=== PATIENT | male | born 2000 | race Caucasian/White ===

== ENCOUNTER 2021-08-13 12:24 | Emergency (ER) | payer OTHER ==
[2021-08-13 12:38] VITALS: BP 147/95; PULSE 82; RESP 20; TEMP 99.4
--- NOTE | 2021-08-13 13:40 | ED ---
URI HPI - General Chief Complaint: Upper Respiratory Infection Stated Complaint: covid test Time Seen by Provider: 08/13/21 13:05 Source: patient Mode of arrival: ambulatory Limitations: no limitations - History of Present Illness Initial Comments: Pleasant 20-year-old male presents complaining of symptoms consistent COVID-19 for the past 3 or 4 days. Patient has had a cough, body aches, low-grade fever, mild headache, loss of taste and smell. Patient exposed to a family member with similar symptomology. Patient states she is actually feeling better at this point. Denies chest pain or recurrence of breath. No abdominal pain. No changes in, when she urination. No nausea or vomiting. No skin rashes or lesions. - Related Data Home Medications Medication Instructions Recorded Confirmed No Known Home Medications 04/19/14 04/19/14 Allergies Allergy/AdvReac Type Severity Reaction Status Date / Time No Known Allergies Allergy Verified 08/13/21 12:34 Review of Systems ROS Statement: Those systems with pertinent positive or pertinent negative responses have been documented in the HPI. ROS Other: All systems not noted in ROS Statement are negative. Past Medical History Past Medical History: Asthma History of Any Multi-Drug Resistant Organisms: None Reported Past Surgical History: Hernia Repair Past Psychological History: Anxiety, Depression Smoking Status: Former smoker Past Alcohol Use History: None Reported Past Drug Use History: None Reported General Exam - General Exam Comments Initial Comments: Patient in no distress Limitations: no limitations General appearance: alert, in no apparent distress Head exam: Present: atraumatic, normocephalic, normal inspection Eye exam: Present: normal appearance, PERRL, EOMI. Absent: scleral icterus, conjunctival injection, periorbital swelling ENT exam: Present: normal exam, mucous membranes moist Neck exam: Present: normal inspection. Absent: tenderness, meningismus, lymphadenopathy Respiratory exam: Present: normal lung sounds bilaterally. Absent: respiratory distress, wheezes, rales, rhonchi, stridor Cardiovascular Exam: Present: regular rate, normal rhythm, normal heart sounds. Absent: systolic murmur, diastolic murmur, rubs, gallop, clicks GI/Abdominal exam: Present: soft, normal bowel sounds. Absent: distended, tenderness, guarding, rebound, rigid Extremities exam: Present: normal inspection, full ROM, normal capillary refill. Absent: tenderness, pedal edema, joint swelling, calf tenderness Back exam: Present: normal inspection Neurological exam: Present: alert, oriented X3, CN II-XII intact Psychiatric exam: Present: normal affect, normal mood Skin exam: Present: warm, dry, intact, normal color. Absent: rash Course Vital Signs 08/13/21 12:35 Temperature 99.4 F Pulse Rate 82 Respiratory 20 Rate Blood Pressure 147/95 O2 Sat by Pulse 98 Oximetry Medical Decision Making - Medical Decision Making Patient presents with symptoms consistent with COVID-19. Patient educated on quarantine measures. Patient was told to return to the ER for any signs or symptoms worsen. Told to return immediately if any other problems arise. All questions answered. Treatment plan discussed. Patient in agreement - Lab Data Lab Results 08/13/21 Range/Units 12:47 Coronavirus (PCR) Detected A (Not Detectd) Disposition Clinical Impression: COVID-19 Disposition: HOME SELF-CARE Condition: Good Instructions (If sedation given, give patient instructions): Coronavirus Dise ase 2019 (COVID-19) Additional Instructions: SELF QUARANTINE DISCHARGE: As you are at risk for symptoms due to coronavirus, please stay home and stay away from others as much as possible. Please maintain social distance of 6 feet if possible. You should not return to work until at least 3 days (72 hours) have passed since recovery of symptoms. This defined as resolution of fever without the use of fever reducing medicines and improvement in respiratory symptoms (e.g,, cough, shortness of breath) Isolation can end at least 5 days after symptom onset and after fever ends for 24 hours (without the use of fever-reducing medication) and symptoms are improving, if these people can continue to properly wear a well-fitted mask around others for 5 more days after the 5-day isolation period. If you're still having symptoms at the end of 5 day period, isolate for an additional 5 days. More information about what to do if you are sick can be found on the CDC web site at https://www.cdc.gov/coronavirus/2019-ncov/km-jrg-fwm-sick/tezwy-roli-rwts.html Expect the symptoms to last for 7-14 days from onset. Use acetaminophen (Tylenol) as needed for discomfort. You can take a maximum of 1 gram every 6 hours for discomfort, with your total dose in 24 hours not exceeding 4 grams. Be sure to maintain hydration. Drink continuous water and/or items high in vitamin C, such as orange juice and/or lemonade. Unless you have high blood pressure, you may consider Sudafed (which is [id number]) for nasal congestion. I would suggest that a short acting Ena afed rather than the 24 hour Sudafed. For a cough you may take Mucinex or Robitussin. Also consider the use of Vicks Vapor Rub or your chest when you sleep. Use a humidifier that is cleaned frequently, in the bedroom at night. For Nausea /Vomiting/Diarrhea associated with your Illness: o Small frequent sips of room temperature liquids. o Diet: Lamar Foods - If you are still experiencing discomfort and/or nausea please slowly advancing your diet using the BRAT Diet = bananas, rice, apples/apple sauce, toast. o With diarrhea avoid any dairy for 48 hours after symptoms resolved. o Continue with activity as tolerated. If your symptoms do get worse and you believe that the upper respiratory infection has developed into something else, such as pneumonia or severe deh ydration, please return to the emergency department or follow-up with your primary care. But expect to be symptomatic for the days as indicated above Follow-up with her regular physician for reevaluation if needed. If you need a regular physician, I have provided a primary care doctor on your paperwork for you. Is patient prescribed a controlled substance at d/c from ED?: No Referrals: Eric Catherine [STAFF PHYSICIAN] - 08/20/21 Time of Disposition: 13:35
== END 2021-08-13 13:42 | disposition home or self-care (01) ==
LOC: EC 12:24
DX: U07.1 COVID-19 (principal); J45.909 Unspecified asthma, uncomplicated; F41.9 Anxiety disorder, unspecified; F32.A Depression, unspecified; Z87.891 Personal history of nicotine dependence
CPT/HCPCS: 87635; 99284

== ENCOUNTER 2021-10-22 09:11 | Emergency (ER) | payer OTHER ==
[2021-10-22 09:16] VITALS: BP 157/90; PULSE 108; RESP 20; TEMP 99.7
[2021-10-22] MEDS ORDERED: IBUPROFEN 600 MG TAB PO STA (09:32)
--- NOTE | 2021-10-22 09:33 | ED ---
ENT HPI - General Chief complaint: ENT Stated complaint: ENT Time Seen by Provider: 10/22/21 09:18 Source: patient, RN notes reviewed Mode of arrival: ambulatory Limitations: no limitations - History of Present Illness Initial comments: 20-year-old male presented to the emergency Department with chief complaint of sore throat. Patient states is painful to swallow he is has no difficulty swallowing other painful. Denies any shortness of breath. Patient states that symptoms started overnight he is noted to have a fever today. Denies any history of mono. He denies any abdominal pain. Patient offers no other complaints. - Related Data Previous Rx's Medication Instructions Recorded Azithromycin [Zithromax Z-pack (6 0 mg PO DIRECTED #1 packet 10/22/21 tabs)] Allergies Allergy/AdvReac Type Severity Reaction Status Date / Time No Known Allergies Allergy Verified 10/22/21 09:16 Review of Systems ROS Statement: Those systems with pertinent positive or pertinent negative responses have been documented in the HPI. ROS Other: All systems not noted in ROS Statement are negative. Past Medical History Past Medical History: Asthma History of Any Multi-Drug Resistant Organisms: None Reported Past Surgical History: Hernia Repair Past Psychological History: Anxiety, Depression Smoking Status: Former smoker Past Alcohol Use History: None Reported Past Drug Use History: None Reported General Exam Limitations: no limitations General appearance: alert, in no apparent distress Head exam: Present: atraumatic, normocephalic, normal inspection Eye exam: Present: normal appearance, PERRL, EOMI. Absent: scleral icterus, conjunctival injection, periorbital swelling ENT exam: Present: mucous membranes moist, TM's normal bilaterally, normal external ear exam. Absent: normal oropharynx (Erythematous posterior pharynx, no abscess noted) Neck exam: Present: normal inspection, full ROM, lymphadenopathy. Absent: tenderness, meningismus Respiratory exam: Present: normal lung sounds bilaterally. Absent: respiratory distress, wheezes, rales, rhonchi, stridor Cardiovascular Exam: Present: normal rhythm, tachycardia, normal heart sounds. Absent: systolic murmur, diastolic murmur, rubs, gallop, clicks Course Vital Signs 10/22/21 09:14 Temperature 99.7 F H Pulse Rate 108 H Respiratory 20 Rate Blood Pressure 157/90 O2 Sat by Pulse 97 Oximetry Medical Decision Making - Medical Decision Making Patient noted to have fever, symptoms consistent with strep pharyngitis. Patient was started on antibiotics we did discuss symptomatic control and return parameters. Disposition Clinical Impression: Acute pharyngitis Disposition: HOME SELF-CARE Condition: Stable Instructions (If sedation given, give patient instructions): Strep Throat (ED) Additional Instructions: Please return to the Emergency Department if symptoms worsen or any other concerns. Prescriptions: Azithromycin [Zithromax Z-pack (6 tabs)] 0 mg PO DIRECTED #1 packet Is patient prescribed a controlled substance at d/c from ED?: No Referrals: Kya Darnell MD [Primary Care Provider] - 1-2 days Time of Disposition: 09:33
== END 2021-10-22 09:40 | disposition home or self-care (01) ==
LOC: EC 09:11
DX: J02.9 Acute pharyngitis, unspecified (principal); J45.909 Unspecified asthma, uncomplicated; F41.9 Anxiety disorder, unspecified; F32.A Depression, unspecified; Z87.891 Personal history of nicotine dependence
CPT/HCPCS: 99283

== ENCOUNTER 2022-05-12 15:32 | Emergency (ER) | payer OTHER ==
[2022-05-12 16:36] VITALS: BP 148/82; PULSE 94; RESP 16; TEMP 98.2
--- NOTE | 2022-05-12 16:42 | ED ---
Upper Extremity HPI - General Chief Complaint: Extremity Injury, Upper Stated Complaint: Knuckle Injury Time Seen by Provider: 05/12/22 16:35 Source: patient, RN notes reviewed Mode of arrival: ambulatory Limitations: no limitations - History of Present Illness MD Complaint: Injury to:: right, hand Onset/Timin -: week(s) Other Extremity Injury: Hand: Right (Patient punched a wooden surface 5 weeks ago out of anger. Complaining of pain at the third MCP joint area which is e xacerbated by movement and palpation.) Other Injuries: none Handedness: left Severity scale (1-10): 4 Improves With: immobilization Worsens With: movement of extremity, other (Palpation) Context: direct blow Associated Symptoms: denies other symptoms - Related Data Previous Rx's Medication Instructions Recorded Azithromycin [Zithromax Z-pack (6 0 mg PO DIRECTED #1 packet 10/22/21 tabs)] Ibuprofen [Motrin] 600 mg PO Q8HR PRN #30 tab 05/12/22 Allergies Allergy/AdvReac Type Severity Reaction Status Date / Time walnut Allergy Unknown Verified 05/12/22 16:37 Review of Systems ROS Statement: Those systems with pertinent positive or pertinent negative responses have been documented in the HPI. No headache, no fever or chills, no changes in vision or hearing, no sore throat or difficulty with speech, no neck pain, no chest pain or shortness of breath, no abdominal pain, no nausea or vomiting, no changes in urination or bowel movements, no numbness or tingling, , no skin rashes or lesions. Past medical, surgical, social, and family history reviewed. ROS Other: All systems not noted in ROS Statement are negative. Past Medical History Past Medical History: Asthma History of Any Multi-Drug Resistant Organisms: None Reported Past Surgical History: Hernia Repair Past Psychological History: Anxiety, Depression Smoking Status: Former smoker Past Alcohol Use History: None Reported Past Drug Use History: None Reported General Exam Limitations: no limitations General appearance: alert, in no apparent distress Head exam: Present: atraumatic, normocephalic, normal inspection Eye exam: Present: normal appearance, EOMI Neck exam: Present: normal inspection Respiratory exam: Present: normal lung sounds bilaterally. Absent: respiratory distress Cardiovascular Exam: Present: regular rate, normal rhythm, normal heart sounds GI/Abdominal exam: Present: soft. Absent: tenderness Right Hand Wrist exam: Present: normal inspection, full ROM, tenderness (Patient tender in the right third MCP joint area.), swelling (There may be mild swelling which is difficult to discern). Absent: abrasion, ecchymosis, deformity, crepitus, dislocation, erythema, amputation, nail avulsion, subungual hematoma Neuro motor exam: Present: wrist extension intact, thumb opposition intact, thumb IP flexion intact, thumb adduction intact, fingers 2-5 abduction intact Neurosensory exam: Present: 2-point discrimination Vascular: Present: normal capillary refill. Absent: vascular compromise, Pallo, pulse deficit radial art, pulse deficit ulnar art Back exam: Present: normal inspection, full ROM. Absent: tenderness Neurological exam: Present: alert, oriented X3, CN II-XII intact. Absent: motor sensory deficit Psychiatric exam: Present: normal affect, normal mood Skin exam: Present: warm, dry, intact, normal color. Absent: rash Course Vital Signs 05/12/22 16:34 Temperature 98.2 F Pulse Rate 94 Respiratory 16 Rate Blood Pressure 148/82 O2 Sat by Pulse 96 Oximetry Medical Decision Making - Medical Decision Making Isolated injury to right hand. No distal or proximal injuries. Distal CMS intact Plain film x-rays ordered of this 5-week-old injury. Patient was told to return to the ER for any signs or symptoms worsen. Told to return immediately if any other problems arise. All questions answered. Treatment plan discussed. Patient in agreement Every effort has been made to ensure accuracy of this dictation. However, due to the limitations of electronic medical records and dictation devices, errors i n charting still occur. Advised conservative therapy and orthopedic follow-up given the length of the patient's symptomology. I suspect the patient has soft tissue injury, possible ligamentous or tendinous injury. We discussed this. We also discussed possibility of healed fracture. Although there does not appear to be any callus formation. Patient was told to return to the ER for any signs or symptoms worsen. Told to return immediately if any other problems arise. All questions answered. Treatment plan discussed. Patient in agreement Every effort has been made to ensure accuracy of this dictation. However, due to the limitations of electronic medical records and dictation devices, errors in charting still occur. [employer] Manager Dr. Gamble - Radiology Data Radiology results: pending, image reviewed Plain film x-rays read by me reveal no evidence of acute pathology. No osseous lesion. No dislocation. No foreign body. No soft tissue changes. Awaiting radiology interpretation. Disposition Clinical Impression: Sprain of metacarpophalangeal joint of right middle finger, initial encounter Disposition: HOME SELF-CARE Condition: Good Instructions (If sedation given, give patient instructions): Hand Sprain (ED) Additional Instructions: Make a follow-up appointment with the orthopedic physician.. Return to the ER immediately if any symptoms worsen, new symptoms arise, or any other problems develop. Prescriptions: Ibuprofen [Motrin] 600 mg PO Q8HR PRN #30 tab PRN Reason: Pain Is patient prescribed a controlled substance at d/c from ED?: No Referrals: Los Brady MD [STAFF PHYSICIAN] - 1-2 days Time of Disposition: 17:15
--- NOTE | 2022-05-12 17:07 | XR ---
EXAMINATION TYPE: XR hand complete RT DATE OF EXAM: 05/12/2022 4:46 PM INDICATION: Patient age:Male; 21 years old; Reason for study: Pain/injury; COMPARISON: None TECHNIQUE: Frontal, lateral and oblique views of the right hand were obtained. FINDINGS: Normal alignment of the visualized joints. No acute osseous pathology is identified. No e vidence of soft tissue swelling. IMPRESSION: No acute osseous pathology.
== END 2022-05-12 17:50 | disposition home or self-care (01) ==
LOC: EC 15:32
DX: S63.652A Sprain of metacarpophalangeal joint of right middle finger, initial encounter (principal); J45.909 Unspecified asthma, uncomplicated; Z87.891 Personal history of nicotine dependence; Z91.018 Allergy to other foods; W22.8XXA Striking against or struck by other objects, initial encounter; Y93.D3 Activity, furniture building and finishing
CPT/HCPCS: 99283

== ENCOUNTER 2022-12-09 00:42 | Emergency (ER) | payer OTHER ==
[2022-12-09 01:00] VITALS: TEMP 100.4
[2022-12-09] MEDS ORDERED: SODIUM CHLORIDE 0.9% 1,000 ML IV STA (01:09)
[2022-12-09] MEDS ORDERED: ORPHENADRINE 30 MG/ML 2 ML VIAL IVP STA (01:11)
[2022-12-09] MEDS ORDERED: KETOROLAC 15 MG/ML 1 ML VIAL IVP STA (01:11)
--- NOTE | 2022-12-09 01:15 | ED ---
Fever HPI - General Chief Complaint: Neck Pain/Injury Stated Complaint: fatigue,body aches Time Seen by Provider: 12/09/22 00:50 Source: patient, RN notes reviewed Mode of arrival: ambulatory Limitations: no limitations - History of Present Illness Initial Comments: This is a 22-year-old male who presents to the emergency department for headaches, neck pain, body aches, and fevers. Symptoms have been present and worsening over the last 3-4 days. Reports multiple sick contacts at work. Denies any significant coughing or congestion. States that the symptoms are predominantly related to the headache and neck pain. States that the neck is very painful whenever he tries to turn his head. Denies any history of similar symptoms in the past or nausea/vomiting. He has felt warm and cold, however he has not checked his temperature at home. Denies any sore throat, cough, dyspnea, chest pain, palpitations, abdominal pain, nausea, vomiting, or diarrhea. MD Complaint: fever, malaise Context: sick contacts Associated Symptoms: headache, stiff neck Treatments Prior to Arrival: none - Related Data Previous Rx's Medication Instructions Recorded Azithromycin [Zithromax Z-pack (6 0 mg PO DIRECTED #1 packet 10/22/21 tabs)] Ibuprofen [Motrin] 600 mg PO Q8HR PRN #30 tab 05/12/22 Baclofen 5 mg PO TID PRN #20 tablet 12/09/22 predniSONE 50 mg PO DAILY 5 Days #5 tab 12/09/22 Allergies Allergy/AdvReac Type Severity Reaction Status Date / Time walnut Allergy Unknown Verified 05/12/22 16:37 Review of Systems ROS Statement: Those systems with pertinent positive or pertinent negative responses have been documented in the HPI. ROS Other: All systems not noted in ROS Statement are negative. Past Medical History Past Medical History: Asthma History of Any Multi-Drug Resistant Organisms: None Reported Past Surgical History: Hernia Repair Past Psychological History: Anxiety, Depression Smoking Status: Former smoker Past Alcohol Use History: None Reported Past Drug Use History: None Reported General Exam Limitations: no limitations General appearance: alert, in no apparent distress Head exam: Present: atraumatic, normocephalic, normal inspection Eye exam: Present: normal appearance, PERRL, EOMI. Absent: scleral icterus, conjunctival injection, periorbital swelling ENT exam: Present: normal oropharynx, mucous membranes moist, TM's normal bilaterally, normal external ear exam Neck exam: Present: normal inspection, full ROM, other (Negative Kernig's and Brudzinski's). Absent: meningismus, lymphadenopathy Respiratory exam: Present: normal lung sounds bilaterally. Absent: respiratory distress, wheezes, rales, rhonchi, stridor Cardiovascular Exam: Present: normal rhythm, tachycardia Neurological exam: Present: alert, oriented X3, CN II-XII intact Psychiatric exam: Present: normal affect, normal mood Skin exam: Present: warm, dry, intact, normal color. Absent: rash Course Vital Signs 12/09/22 00:57 Temperature 100.4 F H Pulse Rate 114 H Respiratory 20 Rate Blood Pressure 123/74 O2 Sat by Pulse 97 Oximetry Medical Decision Making - Medical Decision Making This is a 22-year-old male who presents to the emergency department for headaches and neck pain. Was pt. sent in by a medical professional or institution? @ -No Did you speak to anyone other than the patient for history? @ -His Did you review nursing and triage notes? @ -Yes, and I agree, it is accurate with regards to the patient's symptoms. Were old charts reviewed? @ -No Differential Diagnosis? @ -Differential Headache: Migraine, tension, cluster, carbon monoxide, central venous thrombosis, pension karma temporal arteritis, acute closure glaucoma, intercranial hemorrhage, mastoiditis, sinusitis, head injury, this is not meant to be an all-inclusive list. EKG interpreted by me (3pts min.)? @ -Not obtained. X-rays interpreted by me (1pt min.)? @ -Chest x-ray obtained. My interpretation identifies bronchial wall thickening. CT interpreted by me (1pt min.)? @ -Not obtained U/S interpreted by me (1pt. min.)? @ -Not obtained What testing was considered but not performed? (CT, X-rays, U/S, labs)? Why? @ -Not obtained What meds were considered but not given? Why? @ -Not obtained Did you discuss the management of the patient with other professionals? @ -No Did you reconcile home meds? @ -No Was smoking cessation discussed for >3mins.? @ -No Was critical care preformed (if so, how long)? @ -No Were there social determinants of health that impacted care today? How? (Homelessness, low income, unemployed, alcoholism, drug addiction, transportation, low edu. Level, literacy, decrease access to med. care, senior living, rehab)? @ -No Was there de-escalation of care discussed even if they declined? (Discuss DNR or withdrawal of care, Hospice)? @ -No What co-morbidities impacted this encounter? (DM, HTN, Smoking, COPD, CAD, Cancer, CVA, Hep., AIDS, mental health diagnosis, sleep apnea, morbid obesity)? @ -Asthma Was patient admitted / discharged? @ -Discharged. Patient did not have any meningeal signs on physical examination. Lab work obtained and found to be nonactionable. Chest x-ray findings consistent with a viral infection. He was given IV fluids, Toradol, and Norflex, with resolution of symptoms. Given that symptoms resolved follo wing medication administration with negative meningeal signs and unremarkable lab work, symptoms most likely related to a cervical strain with overlying viral infection. Will treat the patient with a 5 day course of prednisone and baclofen. Dosing instructions for both medications reviewed. Advised that the baclofen can be sedating and he should avoid driving or operating machinery when taking this. Advised continuing to take Tylenol and ibuprofen as needed for any additional fevers. However, he is advised to limit ibuprofen intake with the prednisone and to try and control fevers with Tylenol. He is otherwise instructed to follow-up with his primary care provider for reevaluation of s ymptoms. Undiagnosed new problem with uncertain prognosis? @ -None Drug Therapy requiring intensive monitoring for toxicity (Heparin, Nitro, Ins ulin, Cardizem)? @ -None Were any procedures done? @ -None Diagnosis/symptom? @ -Cervical strain, headache, viral infection Acute, or Chronic, or Acute on Chronic? @ -Acute Uncomplicated (without systemic symptoms) or Complicated (systemic symptoms)? @ -Uncomplicated Side effects of treatment? @ -None Exacerbation, Progression, or Severe Exacerbation] @ -Not applicable Poses a threat to life or bodily function? @ -No Return precautions reviewed in depth, the patient is instructed to return to the emergency department with any new, worsening, or concerning symptoms. Patient verbalized understanding. This case was discussed in detail with the attending ED physician, Dr. Wood. Presentation, findings, and treatment plan discussed in detail as well. - Lab Data Result diagrams: 12/09/22 01:33 12/09/22 01:33 Lab Results 12/09/22 12/09/22 12/09/22 Range/Units 01:30 01:33 01:33 WBC 4.8 (3.8-10.6) k/uL RBC 5.44 (4.30-5.90) m/uL Hgb 15.5 (13.0-17.5) gm/dL Hct 45.6 (39.0-53.0) % MCV 83.8 (80.0-100.0) fL MCH 28.5 (25.0-35.0) pg MCHC 34.0 (31.0-37.0) g/dL RDW 12.2 (11.5-15.5) % Plt Count 191 (150-450) k/uL MPV 7.8 Neutrophils % Not Reportable Neutrophils % (Manual) 36 % Band Neuts % (Manual) 12 % Lymphocytes % Not Reportable Lymphocytes % (Manual) 38 % Monocytes % Not Reportable Monocytes % (Manual) 12 % Eosinophils % Not Reportable Eosinophils % (Manual) 2 % Basophils % Not Reportable Neutrophils # Not Reportable Neutrophils # (Manual) 2.30 (1.3-7.7) k/uL Lymphocytes # Not Reportable Lymphocytes # (Manual) 1.82 (1.0-4.8) k/uL Monocytes # Not Reportable Monocytes # (Manual) 0.58 (0-1.0) k/uL Eosinophils # Not Reportable Eosinophils # (Manual) 0.10 (0-0.7) k/uL Basophils # Not Reportable Nucleated RBCs 0 (0-0) /100 WBC Manual Slide Review Performed Sodium (137-145) mmol/L Potassium (3.5-5.1) mmol/L Chloride (98-107) mmol/L Carbon Dioxide (22-30) mmol/L Anion Gap mmol/L BUN (9-20) mg/dL Creatinine (0.66-1.25) mg/dL Est GFR (CKD-EPI)AfAm (>60 ml/min/1.73 sqM) Est GFR (CKD-EPI)NonAf (>60 ml/min/1.73 sqM) Glucose (74-99) mg/dL Plasma Lactic Acid Lokes[place] (0.7-2.0) mmol/L Calcium (8.4-10.2) mg/dL Total Bilirubin (0.2-1.3) mg/dL AST (17-59) U/L ALT (4-49) U/L Alkaline Phosphatase (38-126) U/L C-Reactive Protein (<1.0) mg/dL Total Protein (6.3-8.2) g/dL Albumin (3.5-5.0) g/dL Urine Color Yellow Urine Appearance Clear (Clear) Urine pH 7.5 (5.0-8.0) Ur Specific [place] 1.016 (1.001-1.035) Urine Protein Negative (Negative) Urine Glucose (UA) Negative (Negative) Urine Ketones Negative (Negative) Urine Blood Negative (Negative) Urine Nitrite Negative (Negative) Urine Bilirubin Negative (Negative) Urine Urobilinogen <2.0 (<2.0) mg/dL Ur Leukocyte Esterase Negative (Negative) Heterophile Antibody Negative (Negative) Influenza Type A (PCR) (Not Detectd) Influenza Type B (PCR) (Not Detectd) RSV (PCR) (Not Detectd) SARS-CoV-2 (PCR) (Not Detectd) Group A Strep (PCR) (Not Detectd) 12/09/22 12/09/22 12/09/22 Range/Units 01:33 01:33 01:33 WBC (3.8-10.6) k/uL RBC (4.30-5.90) m/uL Hgb (13.0-17.5) gm/dL Hct (39.0-53.0) % MCV (80.0-100.0) fL MCH (25.0-35.0) pg MCHC (31.0-37.0) g/dL RDW (11.5-15.5) % Plt Count (150-450) k/uL MPV Neutrophils % Neutrophils % (Manual) % Band Neuts % (Manual) % Lymphocytes % Lymphocytes % (Manual) % Monocytes % Monocytes % (Manual) % Eosinophils % Eosinophils % (Manual) % Basophils % Neutrophils # Neutrophils # (Manual) (1.3-7.7) k/uL Lymphocytes # Lymphocytes # (Manual) (1.0-4.8) k/uL Monocytes # Monocytes # (Manual) (0-1.0) k/uL Eosinophils # Eosinophils # (Manual) (0-0.7) k/uL Basophils # Nucleated RBCs (0-0) /100 WBC Manual Slide Review Sodium 139 (137-145) mmol/L Potassium 3.7 (3.5-5.1) mmol/L Chloride 101 (98-107) mmol/L Carbon Dioxide 26 (22-30) mmol/L Anion Gap 12 mmol/L BUN 10 (9-20) mg/dL Creatinine 0.83 (0.66-1.25) mg/dL Est GFR (CKD-EPI)AfAm >90 (>60 ml/min/1.73 sqM) Est GFR (CKD-EPI)NonAf >90 (>60 ml/min/1.73 sqM) Glucose 119 H (74-99) mg/dL Plasma Lactic Acid [place] 1.1 (0.7-2.0) mmol/L Calcium 9.0 (8.4-10.2) mg/dL Total Bilirubin 0.5 (0.2-1.3) mg/dL AST 37 (17-59) U/L ALT 26 (4-49) U/L Alkaline Phosphatase 84 (38-126) U/L C-Reactive Protein 1.3 H (<1.0) mg/dL Total Protein 7.3 (6.3-8.2) g/dL Albumin 4.5 (3.5-5.0) g/dL Urine Color Urine Appearance (Clear) Urine pH (5.0-8.0) Ur Specific [place] (1.001-1.035) Urine Protein (Negative) Urine Glucose (UA) (Negative) Urine Ketones (Negative) Urine Blood (Negative) Urine Nitrite (Negative) Urine Bilirubin (Negative) Urine Urobilinogen (<2.0) mg/dL Ur Leukocyte Esterase (Negative) Heterophile Antibody (Negative) Influenza Type A (PCR) (Not Detectd) Influenza Type B (PCR) (Not Detectd) RSV (PCR) (Not Detectd) SARS-CoV-2 (PCR) (Not Detectd) Group A Strep (PCR) NOT DETECTED (Not Detectd) 12/09/22 Range/Units 01:33 WBC (3.8-10.6) k/uL RBC (4.30-5.90) m/uL Hgb (13.0-17.5) gm/dL Hct (39.0-53.0) % MCV (80.0-100.0) fL MCH (25.0-35.0) pg MCHC (31.0-37.0) g/dL RDW (11.5-15.5) % Plt Count (150-450) k/uL MPV Neutrophils % Neutrophils % (Manual) % Band Neuts % (Manual) % Lymphocytes % Lymphocytes % (Manual) % Monocytes % Monocytes % (Manual) % Eosinophils % Eosinophils % (Manual) % Basophils % Neutrophils # Neutrophils # (Manual) (1.3-7.7) k/uL Lymphocytes # Lymphocytes # (Manual) (1.0-4.8) k/uL Monocytes # Monocytes # (Manual) (0-1.0) k/uL Eosinophils # Eosinophils # (Manual) (0-0.7) k/uL Basophils # Nucleated RBCs (0-0) /100 WBC Manual Slide Review Sodium (137-145) mmol/L Potassium (3.5-5.1) mmol/L Chloride (98-107) mmol/L Carbon Dioxide (22-30) mmol/L Anion Gap mmol/L BUN (9-20) mg/dL Creatinine (0.66-1.25) mg/dL Est GFR (CKD-EPI)AfAm (>60 ml/min/1.73 sqM) Est GFR (CKD-EPI)NonAf (>60 ml/min/1.73 sqM) Glucose (74-99) mg/dL Plasma Lactic Acid Lokes[place] (0.7-2.0) mmol/L Calcium (8.4-10.2) mg/dL Total Bilirubin (0.2-1.3) mg/dL AST (17-59) U/L ALT (4-49) U/L Alkaline Phosphatase (38-126) U/L C-Reactive Protein (<1.0) mg/dL Total Protein (6.3-8.2) g/dL Albumin (3.5-5.0) g/dL Urine Color Urine Appearance (Clear) Urine pH (5.0-8.0) Ur Specific [place] (1.001-1.035) Urine Protein (Negative) Urine Glucose (UA) (Negative) Urine Ketones (Negative) Urine Blood (Negative) Urine Nitrite (Negative) Urine Bilirubin (Negative) Urine Urobilinogen (<2.0) mg/dL Ur Leukocyte Esterase (Negative) Heterophile Antibody (Negative) Influenza Type A (PCR) Not Detected (Not Detectd) Influenza Type B (PCR) Not Detected (Not Detectd) RSV (PCR) Not Detected (Not Detectd) SARS-CoV-2 (PCR) Not Detected (Not Detectd) Group A Strep (PCR) (Not Detectd) - Radiology Data Radiology results: report reviewed, image reviewed Disposition Clinical Impression: Cervical strain, Viral infection, Headache Disposition: HOME SELF-CARE Instructions (If sedation given, give patient instructions): Cervical Strain (ED) Additional Instructions: Return to the emergency department with any new, worsening, or concerning symptoms. Take the prednisone daily for 5 days. You can also apply warm compresses to the neck. You can take the baclofen as 1-2 tablets up to 3 times daily. Be aware that this may be sedating and you should avoid driving or operating machinery when taking this. Alternate with ibuprofen and Tylenol as needed for fevers. Follow up with your primary care provider in 1-2 days. Prescriptions: Baclofen 5 mg PO TID PRN #20 tablet PRN Reason: Pain predniSONE 50 mg PO DAILY 5 Days #5 tab Is patient prescribed a controlled substance at d/c from ED?: No Referrals: None,Stated [REFERRING] - 1-2 days
[2022-12-09 01:49] LABS: HCT 45.6 % (39.0-53.0); HGB 15.5 gm/dL (13.0-17.5); MCH 28.5 pg (25.0-35.0); MCV 83.8 fL (80.0-100.0); Mean Platelet Volume 7.8; Platelet Count 191 k/uL (150-450); RBC 5.44 m/uL (4.30-5.90); RDW 12.2 % (11.5-15.5); WBC 4.8 k/uL (3.8-10.6)
[2022-12-09 02:03] LABS: Appearance,Urine Clear (Clear); Bilirubin,Urine Negative (Negative); Blood,Urine Negative (Negative); Color,Urine Yellow; Glucose,Urine (UA) Negative (Negative); Ketones,Urine Negative (Negative); Leukocyte Esterase,Urine Negative (Negative); Nitrite,Urine Negative (Negative); PH, Urine 7.5 (5.0-8.0); Protein,Urine Negative (Negative); Specific Gravity,Urine 1.016 (1.001-1.035); Urobilinogen,Urine <2.0 mg/dL (<2.0)
[2022-12-09 02:10] LABS: Band Neutrophils % 12 %; Lymphocytes # (M) 1.82 k/uL (1.0-4.8); Monocytes # (M) 0.58 k/uL (0-1.0); Neutrophils % (M) 36 %; Nucleated Red Blood Cells 0 /100 WBC (0-0); Total Cells Counted 100
--- NOTE | 2022-12-09 02:13 | XR ---
EXAM: XR Chest, 2 Views CLINICAL HISTORY: ITS.REASON XR Reason: Fever, weakness TECHNIQUE: Frontal and lateral views of the chest. COMPARISON: No relevant prior studies available. FINDINGS: Lungs: Bilateral perihilar haziness with bronchial wall thickening most consistent with a viral infection. Pleural space: Unremarkable. No pneumothorax. No pleural effusions. Heart: Unremarkable. No cardiomegaly. Mediastinum: Unremarkable. Bones/joints: No acute osseous abnormalities. IMPRESSION: Bilateral perihilar haziness with bronchial wall thickening most consistent with a viral infection.
[2022-12-09 02:27] LABS: ALT 26 U/L (4-49); AST 37 U/L (17-59); African American GFR (CKD) >90 (>60 ml/min/1.73 sqM); Albumin 4.5 g/dL (3.5-5.0); Alkaline Phosphatase 84 U/L (38-126); Anion Gap 12 mmol/L; Blood Urea Nitrogen 10 mg/dL (9-20); C Reactive Protein 1.3 mg/dL (<1.0); Carbon Dioxide 26 mmol/L (22-30); Chloride 101 mmol/L (98-107); Glucose 119 mg/dL (74-99); Non-African American GFR(CKD) >90 (>60 ml/min/1.73 sqM); Potassium 3.7 mmol/L (3.5-5.1); Sodium 139 mmol/L (137-145); Total Bilirubin 0.5 mg/dL (0.2-1.3); Total Protein 7.3 g/dL (6.3-8.2)
[2022-12-09] MEDS ORDERED: methylPREDNISolone SOD SUCCI 125 MG/2 ML VIAL IV STA (02:35)
[2022-12-09 03:11] VITALS: BP 118/68; PULSE 72; RESP 16
== END 2022-12-09 03:11 | disposition home or self-care (01) ==
LOC: EC 00:42
DX: S16.1XXA Strain of muscle, fascia and tendon at neck level, initial encounter (principal); B34.9 Viral infection, unspecified; R51.9 Headache, unspecified; J45.909 Unspecified asthma, uncomplicated; Z86.59 Personal history of other mental and behavioral disorders; Z87.891 Personal history of nicotine dependence; Z91.018 Allergy to other foods; Z20.822 Contact with and (suspected) exposure to COVID-19; X58.XXXA Exposure to other specified factors, initial encounter
CPT/HCPCS: 36415; 87651; 80053; 83605; 85025; 86140; 86308; 81003; 87636; 71046; 99284; 96374; 96375 ×2; 96361; J2360; J2930; J1885

== ENCOUNTER 2023-05-03 11:52 | Emergency (ER) | payer OTHER ==
[2023-05-03 12:12] VITALS: BP 131/78; PULSE 85; TEMP 98.7
--- NOTE | 2023-05-03 12:15 | ED ---
General Adult HPI - General Chief complaint: Upper Respiratory Infection Stated complaint: Cough Time Seen by Provider: 05/03/23 12:03 Source: patient, RN notes reviewed, old records reviewed Mode of arrival: ambulatory Limitations: no limitations - History of Present Illness Initial comments: 26 yo male presenting for evaluation of cough and congestion. Patient denies measured fever but states he's had some subjective fever and chills. Patient denies dyspnea. He denies any chronic medical conditions. He denies sore throat. He said some nasal congestion and minor cough which is mostly nonproductive. - Related Data Previous Rx's Medication Instructions Recorded RX: Azithromycin [Zithromax Z-pack 0 mg PO DIRECTED #1 packet 10/22/21 (6 tabs)] RX: Ibuprofen [Motrin] 600 mg PO Q8HR PRN #30 tab 05/12/22 RX: Baclofen 5 mg PO TID PRN #20 tablet 12/09/22 RX: predniSONE 50 mg PO DAILY 5 Days #5 tab 12/09/22 Allergies Allergy/AdvReac Type Severity Reaction Status Date / Time walnut Allergy Unknown Verified 05/03/23 12:02 Review of Systems ROS Statement: Those systems with pertinent positive or pertinent negative responses have been documented in the HPI. ROS Other: All systems not noted in ROS Statement are negative. Past Medical History Past Medical History: Asthma History of Any Multi-Drug Resistant Organisms: None Reported Past Surgical History: Hernia Repair Past Psychological History: Anxiety, Depression Smoking Status: Former smoker Past Alcohol Use History: None Reported Past Drug Use History: None Reported General Exam Limitations: no limitations General appearance: alert, in no apparent distress Head exam: Present: atraumatic, normocephalic Eye exam: Present: normal appearance, PERRL ENT exam: Present: normal exam, normal oropharynx Neck exam: Present: normal inspection. Absent: tenderness, meningismus Respiratory exam: Present: normal lung sounds bilaterally. Absent: respiratory distress, wheezes Cardiovascular Exam: Present: regular rate, normal rhythm GI/Abdominal exam: Present: soft. Absent: distended, tenderness, guarding Extremities exam: Present: normal inspection Neurological exam: Present: alert, oriented X3, CN II-XII intact. Absent: motor sensory deficit Psychiatric exam: Present: normal affect, normal mood Skin exam: Present: warm, dry, intact. Absent: cyanosis, diaphoretic Course Vital Signs 05/03/23 12:00 Temperature 98.7 F Pulse Rate 85 Respiratory 20 Rate Blood Pressure 131/78 O2 Sat by Pulse 97 Oximetry Medical Decision Making - Medical Decision Making Was pt. sent in by a medical professional or institution (SYBIL Rizzo, COPY COORDINATOR, urgent care, hospital, or custodial...) When possible be specific @ -No Did you speak to anyone other than the patient for history (EMS, parent, family, police, friend...)? What history was obtained from this source @ -No Did you review nursing and triage notes (agree or disagree)? Why? @ -I reviewed and agree with nursing and triage notes Were old charts reviewed (outside hosp., previous admission, EMS record, old EKG, old radiological studies, urgent care reports/EKG's, custodial records)? Report findings @ -No old charts were reviewed Differential Diagnosis (chest pain, altered mental status, abdominal pain women, abdominal pain men, vaginal bleeding, weakness, fever, dyspnea, syncope, headache, dizziness, GI bleed, back pain, seizure, CVA, palpatations, mental health, musculoskeletal)? @ -Pneumonia, upper respiratory infection, viral syndrome EKG interpreted by me (3pts min.). @ -As above X-rays interpreted by me (1pt min.). @ -None done CT interpreted by me (1pt min.). @ -None done U/S interpreted by me (1pt. min.). @ -None done What testing was considered but not performed or refused? (CT, X-rays, U/S, labs)? Why? @ -None What meds were considered but not given or refused? Why? @ -None Did you discuss the management of the patient with other professionals (professionals i.e. SYBIL Rizzo, COPY COORDINATOR, lab, RT, psych nurse, healthcare social worker, decorating and assembly supervisor, teacher, chief lifestyle officer, top case assembler)? Give summary @ -No Was smoking cessation discussed for >3mins.? @ -No Was critical care preformed (if so, how long)? @ -No Were there social determinants of health that impacted care today? How? (Homelessness, low income, unemployed, alcoholism, drug addiction, transportation, low edu. Level, literacy, decrease access to med. care, prison, rehab)? @ -No Was there de-escalation of care discussed even if they declined (Discuss DNR or withdrawal of care, Hospice)? DNR status @ -No What co-morbidities impacted this encounter? (DM, HTN, Smoking, COPD, CAD, Cancer, CVA, ARF, Chemo, Hep., AIDS, mental health diagnosis, sleep apnea, morbid obesity)? @ -None Was patient admitted / discharged? Hospital course, mention meds given and route, prescriptions, significant lab abnormalities, going to OR and other pertinent info. @This is a well-appearing 22-year-old male with stable vitals with cough and congestion for the past 3 days. Patient is afebrile. No respirator distress. Lungs are clear to auscultation bilaterally. Patient does believe his symptoms are improving. He will monitor at home for fever, dyspnea, worsening symptoms. He will follow-up with his primary care physician and return to the emergency department as needed. Undiagnosed new problem with uncertain prognosis? @ -No Drug Therapy requiring intensive monitoring for toxicity (Heparin, Nitro, Insulin, Cardizem)? @ -No Were any procedures done? @ -No Diagnosis/symptom? @ -Upper resp infection Acute, or Chronic, or Acute on Chronic? @Acute Uncomplicated (without systemic symptoms) or Complicated (systemic symptoms)? @ -default Side effects of treatment? @ -No Exacerbation, Progression, or Severe Exacerbation? @ -No Poses a threat to life or bodily function? How? (Chest pain, [place], [place], pneumonia, PE, COPD, DKA, ARF, appy, cholecystitis, CVA, Diverticulitis, Homicidal, Suicidal, threat to staff... and all critical care pts) @ -[Low risk at this time Disposition Clinical Impression: Acute upper respiratory infection Disposition: HOME SELF-CARE Condition: Good Instructions (If sedation given, give patient instructions): Upper Respiratory Infection (ED) Is patient prescribed a controlled substance at d/c from ED?: No Referrals: None,Stated [Primary Care Provider] - 1-2 days Time of Disposition: 12:15
[2023-05-03 12:24] VITALS: RESP 16
== END 2023-05-03 12:28 | disposition home or self-care (01) ==
LOC: EC 11:52
DX: J06.9 Acute upper respiratory infection, unspecified (principal); J45.909 Unspecified asthma, uncomplicated; Z87.891 Personal history of nicotine dependence; Z91.018 Allergy to other foods
CPT/HCPCS: 99283

== ENCOUNTER 2024-11-30 22:06 | Emergency (ER) | payer BC, OTHER ==
[2024-11-30 22:21] VITALS: RESP 18; TEMP 98.4
[2024-11-30] MEDS: KETOROLAC 15 MG/ML 1 ML VIAL IVP STA (23:18)
[2024-11-30] MEDS: ORPHENADRINE 30 MG/ML 2 ML VIAL IVP STA (23:21)
[2024-11-30] MEDS: LIDOCAINE 4% PATCH TOPICAL ONE (23:24)
[2024-11-30 23:45] LABS: Basophils # (A) 0.05 10*3/uL (0.00-0.10); Basophils % (A) 0.5 %; Eosinophils # (A) 0.12 10*3/uL (0.04-0.35); Eosinophils % (A) 1.2 %; HCT 40.2 % (39.6-50.0); Lymphocytes # (A) 2.15 10*3/uL (0.90-5.00); Lymphocytes % (A) 22.3 %; MCH 29.8 pg (27.0-32.0); MCHC 34.8 g/dL (32.0-37.0); MCV 85.5 fL (80.0-97.0); Mean Platelet Volume 10.2 fL (9.5-12.2); Monocytes # (A) 1.04 10*3/uL (0.20-1.00); Monocytes % (A) 10.8 %; Neutrophils # (A) 6.23 10*3/uL (1.80-7.70); Neutrophils % (A) 64.9 %; Platelet Count 294 10*3/uL (140-440); RDW 11.9 % (11.5-14.5); WBC 9.62 10*3/uL (4.50-10.00)
--- NOTE | 2024-11-30 23:45 | ED ---
Back Pain HPI - General Source: patient, RN notes reviewed Mode of arrival: ambulatory Limitations: no limitations - History of Present Illness Complaint: back pain <Raysa Urias - Last Filed: 12/01/24 00:56> - General Source: patient, RN notes reviewed, old records reviewed Mode of arrival: ambulatory Limitations: no limitations - History of Present Illness Complaint: back pain <Aj Chauhan - Last Filed: 12/01/24 03:06> - General Chief Complaint: Back Pain/Injury Stated Complaint: L shoulder / back pain Time Seen by Provider: 11/30/24 22:38 - History of Present Illness Initial Comments: This is a 24-year-old male who presents to the emergency department for back pain. He reports left mid to lower back pain for the last several days. Denies any injuries. Denies any nausea/vomiting or history of similar symptoms in the past. Also denies any changes in bowel/bladder habits. He does note that when he takes a deep breath it causes the pain to worsen. However, he does not feel like it is harder to breathe. He went to [facility] yesterday and states that they did 2 CT scans on him and he was given information to follow-up with general surgery. However, he is unsure why they had him follow-up with surgery and he is unsure what exactly they found. They did prescribe him with naproxen which has been somewhat helpful. (Raysa Urias) 24 male to ER for evaluation reevaluation of back pain (Aj Chauhan) - Related Data Previous Rx's Medication Instructions Recorded Azithromycin [Zithromax Z-pack (6 0 mg PO DIRECTED #1 packet 10/22/21 tabs)] Ibuprofen [Motrin] 600 mg PO Q8HR PRN #30 tab 05/12/22 Baclofen 5 mg PO TID PRN #20 tablet 12/09/22 predniSONE 50 mg PO DAILY 5 Days #5 tab 12/09/22 Ketorolac [Toradol] 10 mg PO Q6HR #20 tab 12/01/24 Allergies Allergy/AdvReac Type Severity Reaction Status Date / Time walnut Allergy Unknown Verified 11/30/24 22:21 Review of Systems ROS Other: All systems not noted in ROS Statement are negative. <Raysa Urias - Last Filed: 12/01/24 00:56> ROS Other: All systems not noted in ROS Statement are negative. <Aj Chauhan - Last Filed: 12/01/24 03:06> ROS Statement: Those systems with pertinent positive or pertinent negative responses have been documented in the HPI. Past Medical History Past Medical History: Asthma History of Any Multi-Drug Resistant Organisms: None Reported Past Surgical History: Hernia Repair Past Psychological History: Anxiety, Depression Smoking Status: Former smoker Past Alcohol Use History: None Reported Past Drug Use History: Marijuana <Raysa Urias - Last Filed: 12/01/24 00:56> General Exam Limitations: no limitations General appearance: alert, in no apparent distress Head exam: Present: atraumatic, normocephalic, normal inspection Respiratory exam: Present: normal lung sounds bilaterally. Absent: respiratory distress, wheezes, rales, rhonchi, stridor Cardiovascular Exam: Present: regular rate, normal rhythm GI/Abdominal exam: Present: soft, normal bowel sounds. Absent: distended, tenderness, guarding, rebound, rigid Back exam: Present: other (Tenderness to palpation over the left mid to lower back) Neurological exam: Present: alert, oriented X3, CN II-XII intact Psychiatric exam: Present: normal affect, normal mood Skin exam: Present: warm, dry, intact, normal color. Absent: rash <Raysa Urias - Last Filed: 12/01/24 00:56> General appearance: alert, in no apparent distress Head exam: Present: atraumatic, normocephalic, normal inspection Eye exam: Present: normal appearance, PERRL, EOMI. Absent: scleral icterus, conjunctival injection, periorbital swelling ENT exam: Present: normal exam, mucous membranes moist Neck exam: Present: normal inspection. Absent: tenderness, meningismus, lymphadenopathy Respiratory exam: Present: normal lung sounds bilaterally. Absent: respiratory distress, wheezes, rales, rhonchi, stridor Cardiovascular Exam: Present: regular rate, normal rhythm, normal heart sounds. Absent: systolic murmur, diastolic murmur, rubs, gallop, clicks GI/Abdominal exam: Present: soft, normal bowel sounds. Absent: distended, tenderness, guarding, rebound, rigid Extremities exam: Present: normal inspection, full ROM, normal capillary refill. Absent: tenderness, pedal edema, joint swelling, calf tenderness Back exam: Present: normal inspection Neurological exam: Present: alert, oriented X3, CN II-XII intact Psychiatric exam: Present: normal affect, normal mood Skin exam: Present: warm, dry, intact, normal color. Absent: rash <Aj Chauhan - Last Filed: 12/01/24 03:06> Course <Aj Chauhan - Last Filed: 12/01/24 03:06> Vital Signs 11/30/24 12/01/24 22:19 02:12 Temperature 98.4 F 98.4 F Pulse Rate 77 79 Respiratory 18 18 Rate Blood Pressure 131/83 116/77 O2 Sat by Pulse 97 99 Oximetry - Reevaluation(s) Reevaluation #1: 12/01/24 03:06 Medical records reviewed patient symptoms improved Patient informed of results and questions answered (Aj Chauhan) Medical Decision Making - Lab Data Result diagrams: 11/30/24 23:16 11/30/24 23:16 - Radiology Data Radiology results: report reviewed, image reviewed <Raysa Urias - Last Filed: 12/01/24 00:56> - Lab Data Result diagrams: 11/30/24 23:16 11/30/24 23:16 - Radiology Data Radiology results: report reviewed (CT abdomen pelvis positive for epiploic appendagitis), image reviewed <Aj Chauhan - Last Filed: 12/01/24 03:06> - Medical Decision Making This is a 24-year-old male who presents to the emergency department for back pain. Was pt. sent in by a medical professional or institution? @ -No Did you speak to anyone other than the patient for history? @ -No Did you review nursing and triage notes? @ -Yes, and I agree, it is accurate with regards to the patient's symptoms. Were old charts reviewed? @ -CT scan of the abdomen and pelvis w/o contrast from [facility] obtained on 11/29/2024 revealing focal inflammatory stranding and edema along the left lateral peritoneum with asymmetric thickening of the overlying intercostal musculature. Exact etiology is unclear. If no trauma, they advised consideration of omentitis, omental infarct, or severe epiploic appendagitis. CT A of the chest obtained that day as well revealing no pulmonary embolus or other acute process. Differential Diagnosis? @ -Differential Back Pain: Strain, zoster, cauda equina syndrome, epidural abscess, vertebral osteomyelitis, discitis, fracture, subluxation, disc herniation, DJD, spinal stenosis, dissection, AAA, pancreatitis, peptic ulcer disease, pyelonephritis, kidney stone, this is not meant to be an all-inclusive list. EKG interpreted by me (3pts min.)? @ -Not obtained X-rays interpreted by me (1pt min.)? @ -Not obtained CT interpreted by me (1pt min.)? @ -Pending at case sign out U/S interpreted by me (1pt. min.)? @ -Not obtained What testing was considered but not performed? (CT, X-rays, U/S, labs)? Why? @ -None What meds were considered but not given? Why? @ -None Did you discuss the management of the patient with other professionals? @ -No Did you reconcile home meds? @ -No Was smoking cessation discussed for >3mins.? @ -No Was critical care preformed (if so, how long)? @ -No Were there social determinants of health that impacted care today? How? (Homelessness, low income, unemployed, alcoholism, drug addiction, transportation, low edu. Level, literacy, decrease access to med. care, snf, rehab)? @ -No Was there de-escalation of care discussed even if they declined? (Discuss DNR or withdrawal of care, Hospice)? @ -No What co-morbidities impacted this encounter? (DM, HTN, Smoking, COPD, CAD, Cancer, CVA, Hep., AIDS, mental health diagnosis, sleep apnea, morbid obesity)? @ -None Was patient admitted / discharged? @ -Lab work unremarkable. Urinalysis negative for signs of infection. We were able to get the results of his CT scans from [facility] on 11/29. CT scan of the abdomen and pelvis demonstrates inflammatory stranding and edema along the left lateral peritoneum with asymmetric thickening of the overlying musculature. Etiology unclear. If unrelated to trauma they suggested omentitis, omental infarct, or severe epiploic appendagitis. When discussing potential injuries with the patient, he does do a lot of manual labor at work and playing with his 2-year-old daughter who likes to jump on his abdomen. However, he has otherwise not had any specific injuries. CT scan of the abdomen and pelvis repeated with IV contrast. Case signed out to ED attending, Dr. Chauhan at shift completion pending CT scan results and disposition. Undiagnosed new problem with uncertain prognosis? @ -None Drug Therapy requiring intensive monitoring for toxicity (Heparin, Nitro, Insulin, Cardizem)? @ -None Were any procedures done? @ -None (Raysa Urias) 24 female for reevaluation of pain back pain abdominal pain found to have epiploic appendagitis here in the ER patient symptoms are improved and patient can be discharged home (Aj Chauhan) - Lab Data Lab Results 11/30/24 11/30/24 11/30/24 Range/Units 23:16 23:16 23:16 WBC 9.62 (4.50-10.00) 10*3/uL RBC 4.70 (4.40-5.60) 10*6/uL Hgb 14.0 (13.0-17.0) g/dL Hct 40.2 (39.6-50.0) % MCV 85.5 (80.0-97.0) fL MCH 29.8 (27.0-32.0) pg MCHC 34.8 (32.0-37.0) g/dL Plt Count 294 (140-440) 10*3/uL MPV 10.2 (9.5-12.2) fL Immature Gran % (Auto) 0.3 % Neutrophils % 64.9 % Lymphocytes % 22.3 % Monocytes % 10.8 % Eosinophils % 1.2 % Basophils % 0.5 % Immature Gran # 0.03 (0.00-0.04) 10*3/uL Neutrophils # 6.23 (1.80-7.70) 10*3/uL Lymphocytes # 2.15 (0.90-5.00) 10*3/uL Monocytes # 1.04 H (0.20-1.00) 10*3/uL Eosinophils # 0.12 (0.04-0.35) 10*3/uL Basophils # 0.05 (0.00-0.10) 10*3/uL Sodium 141 (137-145) mmol/L Potassium 4.1 (3.5-5.1) mmol/L Chloride 102 (98-107) mmol/L Carbon Dioxide 28 (22-30) mmol/L Anion Gap 11 mmol/L BUN 13 (9-20) mg/dL Creatinine 0.70 (0.66-1.25) mg/dL Est GFR (CKD-EPI)AfAm >90 (>60 ml/min/1.73 sqM) Est GFR (CKD-EPI)NonAf >90 (>60 ml/min/1.73 sqM) Glucose 87 (74-99) mg/dL Plasma Lactic Acid [place] (0.7-2.0) mmol/L Calcium 9.6 (8.4-10.2) mg/dL Total Bilirubin 0.7 (0.2-1.3) mg/dL AST 28 (17-59) U/L ALT 20 (4-49) U/L Alkaline Phosphatase 93 (38-126) U/L Total Protein 7.3 (6.3-8.2) g/dL Albumin 4.5 (3.5-5.0) g/dL Lipase 62 (23-300) U/L Urine Color Colorless Urine Appearance Clear (Clear) Urine pH 7.0 (5.0-8.0) Ur Specific [place] 1.007 (1.001-1.035) Urine Protein Negative (Negative) Urine Glucose (UA) Negative (Negative) Urine Ketones Negative (Negative) Urine Blood Negative (Negative) Urine Nitrite Negative (Negative) Urine Bilirubin Negative (Negative) Urine Urobilinogen <2.0 (<2.0) mg/dL Ur Leukocyte Esterase Negative (Negative) 11/30/24 Range/Units 23:16 WBC (4.50-10.00) 10*3/uL RBC (4.40-5.60) 10*6/uL Hgb (13.0-17.0) g/dL Hct (39.6-50.0) % MCV (80.0-97.0) fL MCH (27.0-32.0) pg MCHC (32.0-37.0) g/dL Plt Count (140-440) 10*3/uL MPV (9.5-12.2) fL Immature Gran % (Auto) % Neutrophils % % Lymphocytes % % Monocytes % % Eosinophils % % Basophils % % Immature Gran # (0.00-0.04) 10*3/uL Neutrophils # (1.80-7.70) 10*3/uL Lymphocytes # (0.90-5.00) 10*3/uL Monocytes # (0.20-1.00) 10*3/uL Eosinophils # (0.04-0.35) 10*3/uL Basophils # (0.00-0.10) 10*3/uL Sodium (137-145) mmol/L Potassium (3.5-5.1) mmol/L Chloride (98-107) mmol/L Carbon Dioxide (22-30) mmol/L Anion Gap mmol/L BUN (9-20) mg/dL Creatinine (0.66-1.25) mg/dL Est GFR (CKD-EPI)AfAm (>60 ml/min/1.73 sqM) Est GFR (CKD-EPI)NonAf (>60 ml/min/1.73 sqM) Glucose (74-99) mg/dL Plasma Lactic Acid [place] 0.8 (0.7-2.0) mmol/L Calcium (8.4-10.2) mg/dL Total Bilirubin (0.2-1.3) mg/dL AST (17-59) U/L ALT (4-49) U/L Alkaline Phosphatase (38-126) U/L Total Protein (6.3-8.2) g/dL Albumin (3.5-5.0) g/dL Lipase (23-300) U/L Urine Color Urine Appearance (Clear) Urine pH (5.0-8.0) Ur Specific [place] (1.001-1.035) Urine Protein (Negative) Urine Glucose (UA) (Negative) Urine Ketones (Negative) Urine Blood (Negative) Urine Nitrite (Negative) Urine Bilirubin (Negative) Urine Urobilinogen (<2.0) mg/dL Ur Leukocyte Esterase (Negative) Disposition <Raysa Urias - Last Filed: 12/01/24 00:56> Is patient prescribed a controlled substance at d/c from ED?: No Time of Disposition: 02:00 <Aj Chauhan - Last Filed: 12/01/24 03:06> Clinical Impression: Epiploic appendagitis Disposition: HOME SELF-CARE Condition: Good Instructions (If sedation given, give patient instructions): Epiploic Appendagitis (ED) Prescriptions: Ketorolac [Toradol] 10 mg PO Q6HR #20 tab Referrals: None,Stated [Primary Care Provider] - 1-2 days
[2024-11-30 23:57] LABS: Appearance,Urine Clear (Clear); Bilirubin,Urine Negative (Negative); Blood,Urine Negative (Negative); Color,Urine Colorless; Glucose,Urine (UA) Negative (Negative); Ketones,Urine Negative (Negative); Leukocyte Esterase,Urine Negative (Negative); Nitrite,Urine Negative (Negative); Protein,Urine Negative (Negative); Specific Gravity,Urine 1.007 (1.001-1.035); Urobilinogen,Urine <2.0 mg/dL (<2.0)
[2024-11-30 23:58] LABS: ALT 20 U/L (4-49); AST 28 U/L (17-59); African American GFR (CKD) >90 (>60 ml/min/1.73 sqM); Albumin 4.5 g/dL (3.5-5.0); Alkaline Phosphatase 93 U/L (38-126); Anion Gap 11 mmol/L; Blood Urea Nitrogen 13 mg/dL (9-20); Calcium 9.6 mg/dL (8.4-10.2); Carbon Dioxide 28 mmol/L (22-30); Chloride 102 mmol/L (98-107); Glucose 87 mg/dL (74-99); Lipase 62 U/L (23-300); Non-African American GFR(CKD) >90 (>60 ml/min/1.73 sqM); Potassium 4.1 mmol/L (3.5-5.1); Sodium 141 mmol/L (137-145); Total Bilirubin 0.7 mg/dL (0.2-1.3); Total Protein 7.3 g/dL (6.3-8.2)
[2024-12-01] MEDS: ONDANSETRON 4 MG/2 ML VIAL IVP STA (01:10)
--- NOTE | 2024-12-01 01:51 | CT ---
EXAM: CT Abdomen and Pelvis With Intravenous Contrast CLINICAL HISTORY: ITS.REASON CT Reason: Left mid back pain, recent abnormal CT TECHNIQUE: Axial computed tomography images of the abdomen and pelvis with intravenous contrast. CTDI is 15.8 mGy and DLP is 812.6 mGy-cm. This CT exam was performed using one or more of the following dose reduction techniques: automated exposure control, adjustment of the mA and/or kV according to patient size, and/or use of iterative reconstruction technique. COMPARISON: No priors are available. FINDINGS: Lung bases: Unremarkable. No mass. No consolidation. ABDOMEN: Liver: Unremarkable. No mass. Gallbladder and bile ducts: Unremarkable. No calcified stones. No ductal dilation. Pancreas: Unremarkable. No mass. No ductal dilation. Spleen: Unremarkable. No splenomegaly. Adrenals: Unremarkable. No mass. Kidneys and ureters: Unremarkable. No solid mass. No hydronephrosis. Stomach and bowel: Somewhat limited evaluation of mostly nondistended distal colon. No mucosal thickening. No bowel obstruction. PELVIS: Appendix: Normal appendix. Bladder: Unremarkable. No mass. Reproductive: Unremarkable as visualized. ABDOMEN and PELVIS: Intraperitoneal space: Small amount of free fluid in the pelvis. No free air. Bones/joints: No acute fracture. No dislocation. Soft tissues: Focal area of fat stranding around a lobular focus of fat in the left upper lateral abdomen adjacent to the splenic flexure of the colon and the inferior spleen. Vasculature: Unremarkable. No abdominal aortic aneurysm. Lymph nodes: Unremarkable. No enlarged lymph nodes. IMPRESSION: 1. Focal area of fat stranding around a lobular focus of fat in the left upper lateral abdomen adjacent to the splenic flexure of the colon and the inferior spleen. Favor epiploic appendagitis or omental infarct. Apparent wall thickening of the adjacent colon likely due to underdistention rather than colitis. 2. Small amount of free fluid in the pelvis.
[2024-12-01 02:14] VITALS: BP 116/77; PULSE 79
== END 2024-12-01 02:20 | disposition home or self-care (01) ==
LOC: EC 22:06
DX: K63.89 Other specified diseases of intestine (principal); Z91.018 Allergy to other foods; Z87.891 Personal history of nicotine dependence
CPT/HCPCS: 36415; 80053; 83605; 83690; 85025; 81003; 99284; 96374; 96375; J2360; J1885; 74177